=== PATIENT | male | born 1995 | race Caucasian/White ===

== ENCOUNTER 2020-05-19 06:35 | Emergency (ER) | payer BC, OTHER ==
[2020-05-19 09:20] VITALS: BP 123/64
--- NOTE | 2020-05-19 16:27 | ER Document Report ---
Entered by WILMER CULP SCRIBE 05/19/20905 Acting as scribe for:JONAH PETERSON MD ED Oral Problem - General Chief Complaint: Toothache Stated Complaint: TOOTH ACHE Time Seen by Provider: 05/19/20 08:46 Mode of Arrival: Ambulatory Information source: Patient Notes: This 25 year old male patient presents to the emergency department today with complaints of waking up this morning at 6:00 AM with left upper back tooth pain. Patient states he has never had dental problems like this before and he does not have a dentist. - Related Data Allergies/Adverse Reactions: Penicillins Allergy (Verified 05/19/20 08:47) Past Medical History - General Information source: Patient - Social History Smoking Status: Never Smoker Cigarette use (# per day): No Frequency of alcohol use: None Drug Abuse: None Occupation: [employer] Lives with: Family Family History: Reviewed & Not Pertinent - Medical History Medical History: Negative Surgical Hx: Negative Review of Systems - Review of Systems Constitutional: No symptoms reported EENT: See HPI, Mouth pain, Mouth swelling, Dental problem Cardiovascular: No symptoms reported Respiratory: No symptoms reported Gastrointestinal: No symptoms reported Genitourinary: No symptoms reported Male Genitourinary: No symptoms reported Musculoskeletal: No symptoms reported Skin: No symptoms reported Hematologic/Lymphatic: No symptoms reported Neurological/Psychological: No symptoms reported -: Yes All other systems reviewed and negative Physical Exam - Vital signs Vitals: Temp Pulse Resp BP Pulse Ox 97.5 F 57 L 16 120/59 L 98 05/19/20 06:59 05/19/20 06:59 05/19/20 06:59 05/19/20 06:59 05/19/20 06:59 - Notes Notes: Physical Exam: General: Alert, appears uncomfortable. HEENT: Normocephalic. Atraumatic. PERRLA. Extraocular movements intact. Oropharynx clear. Left upper third molar is rotting away and decayed, no drainable abscess, surrounding gum irritation. Neck: Supple. Respiratory: No respiratory distress. Abdominal: Normal Inspection. No distension. Extremities: Moves all four extremities. Neurological: Normal cognition. AAOx4. Normal speech. Psychological: Normal affect. Normal Mood. Skin: Warm. Dry. Normal color. Course - Vital Signs Vital signs: Temp Pulse Resp BP Pulse Ox 97.8 F 62 18 123/64 100 05/19/20 09:15 05/19/20 09:15 05/19/20 09:15 05/19/20 09:15 05/19/20 09:15 Discharge - Discharge Clinical Impression: Toothache Condition: Stable Disposition: HOME, SELF-CARE Instructions: Dentist Additional Instructions: Toothache Your pain is due to dental decay. The tooth must be repaired in order for you to feel better. You will, therefore, be referred to a dentist. Severe swelling or drainage around a tooth usually means a deep dental abscess. This also requires evaluation and treatment by the dentist, but antibiotics may be prescribed while awaiting dental treatment. You should be rechecked immediately if you develop major swelling of the face, increasing pain, a lump in the jaw or gums, headache, or fever. Your left upper third molar is decayed with the outer surface broken away exposing the inner parts of the tooth. Take the clindamycin antibiotic as prescribed. Take Tylenol and Aleve or ibuprofen for pain control. Try using fix the tooth to cover the defect to keep air and cold liquids off of the exposed tooth. Follow-up with a dentist in the next several days for evaluation and probable extraction of the tooth. RETURN TO THE EMERGENCY ROOM IF ANY NEW OR WORSENING SYMPTOMS. Prescriptions: Clindamycin HCl 300 mg PO QID #28 capsule I personally performed the services described in the documentation, reviewed and edited the documentation which was dictated to the scribe in my presence, and it accurately records my words and actions.
== END 2020-05-19 09:16 | disposition home or self-care (01) ==
LOC: ER 06:35
DX: K08.9 Disorder of teeth and supporting structures, unspecified (principal); Z88.0 Allergy status to penicillin
CPT/HCPCS: 99283